=== PATIENT | female | born 1970 | race Caucasian/White ===

== ENCOUNTER 2022-09-07 09:24 | Inpatient (IN) | payer SELFPAY ==
--- NOTE | 2022-09-07 10:49 | RAD REPORT ---
EXAM DESCRIPTION: USExtremity Venous Uni Ltd09/07/2022 10:36 am CLINICAL HISTORY: left leg swelling COMPARISON: None FINDINGS: Left common femoral, superficial femoral, popliteal and posterior tibial veins are compre ssible and demonstrate augmentation. Doppler demonstrates good flow. Nonspecific 3 x 1 x 2 centimeter left inguinal lymph node Grayscale, color and spectral analysis performed on all vessels IMPRESSION: No evidence of deep venous thrombosis involving the left lower extremity.
--- NOTE | 2022-09-07 10:51 | RAD REPORT ---
EXAM DESCRIPTION: US - Lower Extremity Artery Uni Ltd - 09/07/2022 10:36 am CLINICAL HISTORY: Leg pain COMPARISON: None FINDINGS: The left common femoral, superficial femoral, popliteal and dorsalis pedis arterial waveform is bipha sic. Left posterior tibial arterial waveform monophasic Grayscale, color and spectral analysis performed on all vessels IMPRESSION: Mild upper and mid left lower extremity arterial disease [id number] distal left lower extremity arterial disease
--- NOTE | 2022-09-07 11:05 | RAD REPORT ---
EXAM DESCRIPTION: RAD - Foot Left 3 View - 09/07/2022 10:45 am CLINICAL HISTORY: Left Foot pain FINDINGS: Amputation first phalanx. Soft tissue ulceration medially. Cortical irregularity involves the first metatarsal head which may indicate osteomyelitis. No fracture or dislocation Appear to be postsurgical changes involving second phalanx
[2022-09-07 11:23] LABS: Absolute Lymphocytes (CBC) 2.8 K/uL (0.7-4.9); Hematocrit 37.8 % (36.0-45.0); MCV 80.7 fL (80-100); MPV 7.6 fL (7.6-11.3); RBC Red Blood Cell Count 4.68 M/uL (3.86-4.86)
[2022-09-07 11:29] LABS: Protime INR 1.35
[2022-09-07] MEDS ORDERED: NA CHLORIDE 0.9% 100 ML IV ONE (11:39)
[2022-09-07] MEDS ORDERED: VANCOMYCIN 1 GM/VIAL ONE (11:39)
[2022-09-07] MEDS ORDERED: FENTANYL CITR 100 MCG/2 ML ONE (11:39)
[2022-09-07] MEDS ORDERED: NA CHLORIDE 0.9% 250 ML ONE (11:39)
[2022-09-07] MEDS ORDERED: CEFAZOLIN SODIUM 1 GM/VIAL ONE ×2 (11:39→19:58)
[2022-09-07 11:40] LABS: Bilirubin Direct 0.1 mg/dL (0-0.2); Bilirubin Total 0.4 mg/dL (0.2-1.0); Potassium 3.4 mmol/L (3.5-5.1); Protein, Total 8.8 g/dL (6.4-8.2); Troponin High Sensitivity 3.5 pg/mL (<58.9)
[2022-09-07 11:41] LABS: SARS-CoV-2 Antigen Rapid Res Negative (Negative)
--- NOTE | 2022-09-07 11:58 | RAD REPORT ---
EXAM DESCRIPTION: Edward Single View09/07/2022 10:45 am CLINICAL HISTORY: Hypertension COMPARISON: none FINDINGS: The lungs appear clear of acute infiltrate. The heart is normal size IMPRESSION: No acute abnormalities displayed
--- NOTE | 2022-09-07 12:50 | ER ---
Nurse's Notes [facility] Name: Chitra Perry Age: 52 yrs Sex: Female : 1970 Arrival Date: 09/07/2022 Time: 09:27 Bed 6 Private MD: Diagnosis: Cellulitis of left lower limb;Diabetes mellitus due to underlying condition with hyperglycemia Presentation: 09/07 09:54 Chief complaint: Patient states: had her left great toe amputated years ago and it iw never healed, this past week it got read and swollen and oozing, and now my leg is hurting. Coronavirus screen: At this time, the client does not indicate any symptoms associated with coronavirus-19. Ebola Screen: Patient negative for fever greater than or equal to 101.5 degrees Fahrenheit, and additional compatible Ebola Virus Disease symptoms Patient denies exposure to infectious person. Patient denies travel to an Ebola-affected area in the 21 days before illness onset. No symptoms or risks identified at this time. Initial Sepsis Screen: Does the patient meet any 2 criteria? No. Patient's initial sepsis screen is negative. Does the patient have a suspected source of infection? No. Patient's initial sepsis screen is negative. Risk Assessment: Do you want to hurt yourself or someone else? Patient reports no desire to harm self or others. Onset of symptoms was August 31, 2022. 09:54 Method Of Arrival: Ambulatory iw 09:54 Acuity: SIGRID 3 iw Triage Assessment: 10:00 General: Appears distressed, uncomfortable, Behavior is cooperative, appropriate for bp age, anxious. Pain: Complains of pain in left leg. EENT: No deficits noted. Neuro: No deficits noted. Cardiovascular: No deficits noted. Respiratory: No deficits noted. GI: No signs and/or symptoms were reported involving the gastrointestinal system. : No signs and/or symptoms were reported regarding the genitourinary system. Derm: No deficits noted. Musculoskeletal: No deficits noted. Injury Description: LEFT GREAT TOE STUMP POST-SURGICAL WOUND. Historical: - Allergies: 09:56 PENICILLINS; iw 09:56 Codeine; iw - Home Meds: 09:57 None [Active]; iw - PMHx: 09:57 Diabetes mellitus; Hypertensive disorder; neuropathy; iw - PSHx: 09:57 section; iw - Immunization history:: Client reports having NOT received the Covid vaccine. - Social history:: Smoking status: . Screenin:00 Abuse screen: Denies threats or abuse. Denies injuries from another. Nutritional bp screening: No deficits noted. Tuberculosis screening: No symptoms or risk factors identified. Fall Risk None identified. Assessment: 10:00 General: SEE TRIAGE NOTE. bp 12:00 Reassessment: No changes from previously documented assessment. Patient and/or family bp updated on plan of care and expected duration. Pain level reassessed. 13:00 Reassessment: ADMIT INITIATED. bp 15:00 Reassessment: No changes from previously documented assessment. Patient and/or family bp updated on plan of care and expected duration. Pain level reassessed. ADMIT IN PROCESS. 17:00 Reassessment: No changes from previously documented assessment. Patient and/or family bp updated on plan of care and expected duration. Pain level reassessed. ADMIT IN PROCESS. 17:52 Reassessment: ADMIT COMPLETED. bp Vital Signs: 09:54 BP 160 / 74; Pulse 95; Resp 18; Temp 96.9; Pulse Ox 100% on R/A; Weight 83.91 kg; iw Height 5 ft. 7 in. (170.18 cm); Pain 8/10; 11:00 BP 125 / 65; Pulse 81; Resp 16; Pulse Ox 99% ; bp 12:00 BP 129 / 67; Pulse 85; Resp 15; Pulse Ox 96% ; bp 13:00 BP 129 / 65; Pulse 86; Resp 16; Pulse Ox 99% ; bp 14:00 BP 134 / 59; Pulse 84; Resp 16; Pulse Ox 99% ; bp 15:00 BP 129 / 65; Pulse 88; Resp 16; Pulse Ox 99% ; bp 16:00 BP 140 / 68; Pulse 90; Resp 16; Pulse Ox 98% ; bp 17:00 BP 127 / 67; Pulse 87; Resp 16; Pulse Ox 99% ; bp 09:54 Body Mass Index 28.97 (83.91 kg, 170.18 cm) iw ED Course: 09:27 Patient arrived in ED. as 09:30 Andrews Hernandez PA is PHCP. cp 09:30 Andrews Onofre MD is Attending Physician. cp 09:56 Triage completed. iw 09:57 Arm band placed on. iw 10:00 Patient has correct armband on for positive identification. Bed in low position. Call bp light in reach. Side rails up X2. 10:30 Andrea Doe, RN is Primary Nurse. bp 10:38 US Extremity Venous Unilateral Ltd In Process Unspecified. EDMS 10:38 US LE Artery Uni Ltd In Process Unspecified. EDMS 10:46 XRAY Foot LEFT 3 View In Process Unspecified. EDMS 10:46 XRAY Chest (1 view) In Process Unspecified. EDMS 11:05 Inserted saline lock: 20 gauge in right forearm, using aseptic technique. Blood bp collected. 12:49 Rob Tena MD is Hospitalizing Provider. cp 13:03 Rob Tena MD is Hospitalizing Provider. snw 13:03 Pipe Goodson is Hospitalizing Provider. snw 17:52 No provider procedures requiring assistance completed. Patient admitted, IV remains in bp place. Administered Medications: 11:30 Drug: fentaNYL (PF) 25 mcg Route: IVP; Site: right forearm; bp 13:27 Follow up: Response: Pain is decreased bp 11:30 Drug: ceFAZolin 1 grams Volume: 50 ml; Route: IVPB; Infused Over: 30 mins; Site: right bp forearm; 17:55 Follow up: IV Status: Completed infusion; IV Intake: 100ml bp 12:30 Drug: Potassium Effervescent Tablet 25 mEq Route: PO; bp 13:27 Follow up: Response: No adverse reaction bp 12:31 Drug: vancoMYCIN 1 grams Route: IVPB; Infused Over: 2 hrs; Site: right forearm; bp 17:55 Follow up: IV Status: Completed infusion; IV Intake: 250ml bp 13:00 Drug: morphine 4 mg Route: IVP; Infused Over: 4 mins; Site: right forearm; bp 13:27 Follow up: Response: Pain is decreased bp Intake: 17:55 IV: 250ml; Total: 250ml. bp 17:55 IV: 100ml; Total: 350ml. bp Outcome: 12:50 Decision to Hospitalize by Provider. cp 17:52 Admitted to Med/surg accompanied by tech, family with patient, via wheelchair, room bp 214, with chart, Report called to MARQUIS BRODERICK 17:52 Condition: stable 17:52 Instructed on the need for admit. 18:59 Patient left the ED. bp Signatures: Dispatcher [employer] Chanelle Crisostomo, MASON-C DESIGN SUPERVISOR-Csnw Keily Mendiola as Nirmala Wallace, DAVIE RN iw Andrews Hernandez PA PA cp Peltier, Brian, RN RN bp Corrections: (The following items were deleted from the chart) 09:57 09:54 BP 160 / 74; Pulse 103bpm; Resp 18bpm; Pulse Ox 100% RA; Temp 96.9F; 83.91 kg; iw Height 5 ft. 7 in.; BMI: 28.9; Pain 8/10; iw
--- NOTE | 2022-09-07 12:51 | EDPHYS ---
Physician Documentation [facility] Name: Chitra Perry Age: 52 yrs Sex: Female : 1970 Arrival Date: 09/07/2022 Time: 09:27 Bed 6 Private MD: Andrews Lee HPI: 09/07 10:30 This 52 yrs old Female presents to ER via Ambulatory with complaints of Wound Check, cp Leg Pain. 10:30 The patient presents with swelling, tenderness, erythema. cp 10:30 The complaints affect the right foot. Onset: The symptoms/episode began/occurred 1 cp week(s) ago. Associated signs and symptoms: Pertinent positives: calf tenderness, right lower leg pain. Historical: - Allergies: 09:56 PENICILLINS; iw 09:56 Codeine; iw - Home Meds: 09:57 None [Active]; iw - PMHx: 09:57 Diabetes mellitus; Hypertensive disorder; neuropathy; iw - PSHx: 09:57 section; iw - Immunization history:: Client reports having NOT received the Covid vaccine. - Social history:: Smoking status: . ROS: 10:35 Constitutional: Negative for body aches, chills, fever, poor PO intake. cp 10:35 Neck: Negative for pain with movement, pain at rest. cp 10:35 Respiratory: Negative for cough, shortness of breath, wheezing. 10:35 Abdomen/GI: Negative for vomiting, diarrhea, constipation. 10:35 MS/extremity: Positive for erythema, pain, swelling, tenderness, of the right foot. 10:35 Neuro: Negative for altered mental status, headache, weakness. 10:35 All other systems are negative. Exam: 10:40 Constitutional: The patient appears in no acute distress, alert, awake, non-toxic, well cp developed, well nourished, uncomfortable. 10:40 Head/Face: Normocephalic, atraumatic. cp 10:40 Eyes: Periorbital structures: appear normal, Conjunctiva: normal, no exudate, no injection, Sclera: no appreciated abnormality, Lids and lashes: appear normal, bilaterally. 10:40 ENT: External ear(s): are unremarkable, Nose: is normal, Mouth: Lips: moist, Oral mucosa: pink and intact, moist, Posterior pharynx: Airway: no evidence of obstruction, patent. 10:40 Chest/axilla: Inspection: normal. 10:40 Cardiovascular: Rate: normal, Rhythm: regular, Edema: is not appreciated, JVD: is not appreciated. 10:40 Respiratory: the patient does not display signs of respiratory distress, Respirations: normal, no use of accessory muscles, no retractions, labored breathing, is not present, Breath sounds: are clear throughout, no decreased breath sounds, no stridor, no wheezing. 10:40 Abdomen/GI: Exam negative for discomfort, distension, guarding, Inspection: abdomen appears normal. 10:40 Back: pain, is absent, ROM is normal. 10:40 Musculoskeletal/extremity: Extremities: noted in the right foot: amputation noted right great toe, marked erythema, swelling and mild drainage from amputation site, weak, palpable right dorsalis pedis pulse. Vital Signs: 09:54 BP 160 / 74; Pulse 95; Resp 18; Temp 96.9; Pulse Ox 100% on R/A; Weight 83.91 kg; iw Height 5 ft. 7 in. (170.18 cm); Pain 8/10; 11:00 BP 125 / 65; Pulse 81; Resp 16; Pulse Ox 99% ; bp 12:00 BP 129 / 67; Pulse 85; Resp 15; Pulse Ox 96% ; bp 13:00 BP 129 / 65; Pulse 86; Resp 16; Pulse Ox 99% ; bp 14:00 BP 134 / 59; Pulse 84; Resp 16; Pulse Ox 99% ; bp 15:00 BP 129 / 65; Pulse 88; Resp 16; Pulse Ox 99% ; bp 16:00 BP 140 / 68; Pulse 90; Resp 16; Pulse Ox 98% ; bp 17:00 BP 127 / 67; Pulse 87; Resp 16; Pulse Ox 99% ; bp 09:54 Body Mass Index 28.97 (83.91 kg, 170.18 cm) iw MDM: 10:03 Patient medically screened. [facility] 12:45 Data reviewed: vital signs, nurses notes, lab test result(s), radiologic studies. 12:45 Differential diagnosis: cellulitis, sepsis, osteomyelitis. Test interpretation: by ED cp physician or midlevel provider: plain radiologic studies. Counseling: I had a detailed discussion with the patient and/or guardian regarding: the historical points, exam findings, and any diagnostic results supporting the discharge/admit diagnosis, lab results, radiology results, the need for further work-up and treatment in the hospital. Response to treatment: the patient's symptoms have markedly improved after treatment. Physician consultation: Chanelle CANTU was contacted at 12:45, regarding admission, patient's condition. 09/07 10:10 Order name: Basic Metabolic Panel; Complete Time: 11:44 cp 09/07 11:44 Interpretation: Normal except: NA 132; K 3.4; CL 95; GLUC 344. cp 09/07 10:10 Order name: CBC with Diff; Complete Time: 11:44 cp 09/07 10:10 Order name: LFT's; Complete Time: 11:44 cp 09/07 11:45 Interpretation: Normal except: ALK 158; TP 8.8; ALB 3.0; GLOB 5.8; A/G 0.5. cp 09/07 10:10 Order name: NT PRO-BNP; Complete Time: 11:44 cp 09/07 10:10 Order name: PT-INR; Complete Time: 11:44 cp 09/07 10:10 Order name: Troponin HS; Complete Time: 11:44 cp 09/07 11:46 Interpretation: Troponin HS 3.5; Reviewed. cp 09/07 10:10 Order name: Lactate w/ 2H reflex if indic.; Complete Time: 12:15 cp 09/07 10:10 Order name: Procalcitonin; Complete Time: 12:15 cp 09/07 12:15 Interpretation: Reviewed. 09/07 10:10 Order name: Blood Culture Adult (2) cp 09/07 10:51 Order name: SARS RAPID; Complete Time: 11:44 cp 09/07 11:12 Order name: Wound Culture EDCT 09/07 11:51 Order name: LAB Add On cp 09/07 11:51 Order name: ESR; Complete Time: 12:15 cp 09/07 11:51 Order name: CRP; Complete Time: 12:36 cp 09/07 12:50 Order name: COVID-19/FLU A+B snw 09/07 13:25 Order name: Magnesium EDMS 09/07 13:25 Order name: Phosphorus EDMS 09/07 13:25 Order name: Urinalysis EDMS 09/07 13:25 Order name: Vancomycin Peak EDMS 09/07 13:25 Order name: Basic Metabolic Panel EDMS 09/07 13:25 Order name: Basic Metabolic Panel EDMS 09/07 13:25 Order name: CBC with Automated Diff EDMS 09/07 13:25 Order name: CBC with Automated Diff EDMS 09/07 13:25 Order name: Comprehensive Metabolic Panel EDMS 09/07 13:25 Order name: Comprehensive Metabolic Panel EDMS 09/07 13:25 Order name: Lipid Profile EDMS 09/07 13:25 Order name: Lipid Profile EDMS 09/07 13:25 Order name: Protime (+INR) EDMS 09/07 13:25 Order name: Protime (+INR) EDMS 09/07 10:10 Order name: XRAY Foot LEFT 3 View; Complete Time: 11:26 cp 09/07 10:10 Order name: XRAY Chest (1 view); Complete Time: 12:15 cp 09/07 10:10 Order name: EKG; Complete Time: 10:11 cp 09/07 10:10 Order name: Cardiac monitoring; Complete Time: 11:24 cp 09/07 10:10 Order name: EKG - Nurse/Tech; Complete Time: 11:24 cp 09/07 10:10 Order name: IV Saline Lock; Complete Time: 11:24 cp 09/07 10:10 Order name: Labs collected and sent; Complete Time: 11:24 cp 09/07 10:10 Order name: O2 Per Protocol; Complete Time: 11:24 cp 09/07 10:10 Order name: O2 Sat Monitoring; Complete Time: 11:24 cp 09/07 10:10 Order name: US Extremity Venous Unilateral Ltd; Complete Time: 10:50 cp 09/07 10:50 Interpretation: Report reviewed. cp 09/07 10:10 Order name: US LE Artery Uni Ltd; Complete Time: 11:26 cp 09/07 13:25 Order name: CONS Physician Consult EDCT 09/07 13:25 Order name: 60g Consistent Carbohydrate (ADA 1800/2000) EDCT 09/07 13:25 Order name: NPO EDCT 09/07 13:25 Order name: PTT, Activated Partial Thromb EDMS 09/07 13:25 Order name: PTT, Activated Partial Thromb EDMS 09/07 13:25 Order name: Foot Left Wo Cont EDMS 09/07 18:53 Order name: Glucose, Ancillary Testing EDMS Administered Medications: 11:30 Drug: fentaNYL (PF) 25 mcg Route: IVP; Site: right forearm; bp 13:27 Follow up: Response: Pain is decreased bp 11:30 Drug: ceFAZolin 1 grams Volume: 50 ml; Route: IVPB; Infused Over: 30 mins; Site: right bp forearm; 17:55 Follow up: IV Status: Completed infusion; IV Intake: 100ml bp 12:30 Drug: Potassium Effervescent Tablet 25 mEq Route: PO; bp 13:27 Follow up: Response: No adverse reaction bp 12:31 Drug: vancoMYCIN 1 grams Route: IVPB; Infused Over: 2 hrs; Site: right forearm; bp 17:55 Follow up: IV Status: Completed infusion; IV Intake: 250ml bp 13:00 Drug: morphine 4 mg Route: IVP; Infused Over: 4 mins; Site: right forearm; bp 13:27 Follow up: Response: Pain is decreased bp Disposition Summary: 09/07/22 12:50 Hospitalization Ordered Hospitalization Status: Inpatient Admission cp [facility] cp Condition: Fair cp Problem: new cp Symptoms: have improved cp Bed/Room Type: Standard cp Provider: Pipe Goodson(09/07/22 13:03) snw Room Assignment: 214(09/07/22 15:50) em1 Diagnosis - Cellulitis of left lower limb cp - Diabetes mellitus due to underlying condition with hyperglycemia cp Forms: - Medication Reconciliation Form cp - SBAR form cp Addendum: 09/10/2022 08:01 Co-signature as Attending Physician, Andrews Onofre MD I agree with the assessment and c stein plan of care. Signatures: Dispatcher [employer] Anrdews Arechiga MD MD cha Waters, Shelly, AIRCRAFT RIGGING AND CONTROLS MECHANIC-C AIRCRAFT RIGGING AND CONTROLS MECHANIC-Csnw Nirmala Wallace, Edgar Tan RN em1 Andrews Hernandez PA PA cp Andrea Doe RN RN bp Corrections: (The following items were deleted from the chart) 09/07 11:12 10:31 Wound Culture+BA.LAB.BRZ ordered. [facility] 13:03 12:50 Rob Tena cp snw 15:50 12:50 cp em1
[2022-09-07] MEDS ORDERED: MAGNESIUM HYDROXIDE 8% 30 ML PO PRN (13:08)
[2022-09-07] MEDS ORDERED: ACETAMINOPHEN 500 MG TAB PO PRN (13:08)
[2022-09-07] MEDS ORDERED: POTASSIUM 25 MEQ EFFERV TAB ONE (13:22)
[2022-09-07] MEDS ORDERED: MORPHINE 4 MG/ML SYR ONE (13:22)
[2022-09-07] MEDS ORDERED: PANTOPRAZOLE 40 MG INJ ONE (14:14)
[2022-09-07] MEDS ORDERED: VANCOMYCIN 500 MG in NA CHLORIDE 0.9% 100 ML IVPB ONE (15:00)
[2022-09-07] MEDS: INSULIN -REGULAR HUMAN 50 UNIT/0.5 ML ML SQ SCH ×2 (16:30→20:32)
[2022-09-07 17:41] LABS: Magnesium 1.7 mg/dL (1.8-2.4); Phosphorus 2.9 mg/dL (2.5-4.9)
[2022-09-07] MEDS: NA CHLORIDE 0.9% 1,000 ML IV SCH (18:26)
[2022-09-07 19:08] VITALS: BMI 29.0
[2022-09-07] MEDS: CEFAZOLIN 1 GM in NA CHLORIDE 0.9% 50 ML IVPB SCH (19:58)
[2022-09-07] MEDS: MORPHINE 4 MG/ML SYR IV PRN (19:59)
[2022-09-07] MEDS ORDERED: NA CHLORIDE 0.9% 50 ML ONE (19:59)
--- NOTE | 2022-09-07 20:43 | P.HP ---
Certification for Inpatient With expected LOS: >2 Midnights Patient will require the following post-hospital care: None Practitioner: I am a practitioner with admitting privileges, knowledge of patient current condition, hospital course, and medical plan of care. Services: Services provided to patient in accordance with Admission requirements found in Title 42 Section 412.3 of the Code of Federal Regulations Patient History Date of Service: 09/07/22 Primary Care Provider: none Reason for admission: Osteomyelitis, uncontrolled diabetes History of Present Illness: Ms. Perry is a 52 yo diabetic, hypertensive, hyperlipidemic female who has no PCP and has not been on any medications since 2019. A few weeks ago her left foot became sore, developed an ulcer and in the past three days had become erythematous, edematous, with a foul discharge. Pt has had great toe of this foot removed in [place] many years ago Allergies Penicillins Allergy (Intermediate, Verified 09/07/22 20:45) Hives codeine Allergy (Mild, Verified 09/07/22 20:45) nausea, itching Home medications list reviewed: Yes Home Medications: NK [No Home Meds] 09/07/22 - Past Medical/Surgical History Has patient received pneumonia vaccine in the past: No Diabetic: Yes -: DM -: HTN -: neuropathy -: c section -: toe amputation - Family History Family History: Reviewed- Non-Contributory - Social History Smoking Status: Former smoker Alcohol use: Yes CD- Drugs: No Caffeine use: Yes Place of Residence: Home (alone) Review of Systems General: Unremarkable Eyes: Unremarkable ENT: Unremarkable Respiratory: Unremarkable Cardiovascular: Unremarkable Gastrointestinal: Unremarkable Genitourinary: Unremarkable Musculoskeletal: Other (left foot pain/numbness) Integumentary: Other (diabetic wound) Neurological: Unremarkable Lymphatics: Unremarkable Physical Examination - Vital Signs Temperature: 97.9 F Blood Pressure: 172/71 Pulse: 87 Respirations: 18 Pulse Ox (%): 98 - Physical Exam General: Alert, Oriented x3 HEENT: Atraumatic, Normocephalic Neck: Supple Respiratory: Clear to auscultation bilaterally, Normal air movement Cardiovascular: No edema, Normal pulses Capillary refill: <2 Seconds Gastrointestinal: Normal bowel sounds Musculoskeletal: No clubbing, No swelling Integumentary: Skin breakdown, Tenderness/swelling, Erythema, Warmth, Diabetic ulcer Neurological: Other (distal foot with some decreased sensation) Urinary: Other External genitalia: Deferred Rectal: Deferred - Studies Laboratory Data (last 24 hrs) 09/07/22 11:05: PT 14.8 H, INR 1.35 09/07/22 11:05: WBC 9.90, Hgb 12.8, Hct 37.8, Plt Count 384 09/07/22 11:05: Sodium 132 L, Potassium 3.4 L, BUN 10, Creatinine 0.63, Glucose 344 H, Total Bilirubin 0.4, AST 15, ALT 25, Alkaline Phosphatase 158 H Assessment and Plan - Problems (Diagnosis) (1) Osteomyelitis due to secondary diabetes Current Visit: Yes Status: Acute Plan: IV abx (Cefazolin, Vanc), MRI left foot, wound care/surgical eval and tx per Dr. Mendiola (2) Diabetes Current Visit: Yes Status: Acute Plan: serial measurements, insulin re-initiation Qualifiers: Diabetes mellitus type: type 2 Diabetes mellitus complication status: with skin complications Diabetes mellitus complication detail: with foot ulcer (3) Hypertension Current Visit: Yes Status: Acute Plan: Serial measurements, Lisinopril 10mg po Qualifiers: Hypertension type: primary hypertension Qualified Code(s): I10 - Essential (primary) hypertension Discharge Plan: Home Plan to discharge in: Greater than 2 days - Advance Directives Does patient have a Living Will: No Does patient have a Durable POA for Healthcare: No - Code Status/Comfort Care Code Status Assessed: Yes Code Status: Full Code Critical Care: No Time Spent Managing Pts Care (In Minutes): 70
[2022-09-07] MEDS: lisinopriL 10 MG TAB PO SCH (22:07)
[2022-09-08] MEDS ORDERED: CEFAZOLIN SODIUM 1 GM/VIAL ONE ×4 (00:49→23:53)
[2022-09-08] MEDS: CEFAZOLIN 1 GM in NA CHLORIDE 0.9% 50 ML IVPB SCH ×3 (00:50→18:27)
[2022-09-08] MEDS ORDERED: NA CHLORIDE 0.9% 50 ML ONE ×4 (00:50→23:52)
[2022-09-08] MEDS: VANCOMYCIN 1.5 GM in NA CHLORIDE 0.9% 500 ML IVPB SCH ×2 (02:32→14:57)
[2022-09-08 03:54] LABS: Absolute Lymphocytes (CBC) 1.9 K/uL (0.7-4.9); Hematocrit 31.4 % (36.0-45.0); Lymphocytes % 27.3 % (15.3-44.8); MCV 81.4 fL (80-100); MPV 7.5 fL (7.6-11.3); RBC Red Blood Cell Count 3.86 M/uL (3.86-4.86)
[2022-09-08 04:01] LABS: Protime INR 1.27
[2022-09-08 04:11] LABS: Albumin 2.3 g/dL (3.4-5.0); Bilirubin Total 0.3 mg/dL (0.2-1.0); Potassium 3.7 mmol/L (3.5-5.1)
[2022-09-08] MEDS: MORPHINE 4 MG/ML SYR IV PRN ×3 (05:46→22:08)
--- NOTE | 2022-09-08 07:53 | EKG ---
Test Date: 2022-09-07 Test Time: 11:19:18 X Ray Inspector: BP MEASUREMENT RESULTS: Intervals: Rate: 84 AR: 146 QRSD: 80 QT: 372 QTc: 439 [place]: P: 58 AR: 146 QRS: 18 T: 64 INTERPRETIVE STATEMENTS: Normal sinus rhythm Possible Left atrial enlargement Possible Anterior infarct, age undetermined Abnormal ECG No previous ECG available for comparison Electronically Signed On 09-08-22 07:49:13 HOTEL DESK CLERK by Srinivas Jaimes
[2022-09-08] MEDS: INSULIN -REGULAR HUMAN 50 UNIT/0.5 ML ML SQ SCH ×4 (08:32→22:02)
[2022-09-08] MEDS: NA CHLORIDE 0.9% 1,000 ML IV SCH ×3 (08:35→22:03)
[2022-09-08] MEDS ORDERED: MIDAZOLAM HCL 2 MG/2 ML INJ ONE (12:51)
[2022-09-08] MEDS ORDERED: propofoL 200 MG/20 ML VIAL IV ONE ×2 (12:51→13:26)
[2022-09-08] MEDS ORDERED: FENTANYL CITR 100 MCG/2 ML ONE (12:51)
[2022-09-08] MEDS ORDERED: BUPIVACAINE 0.5% PF 10 ML VIAL ONE (12:52)
[2022-09-08] MEDS ORDERED: LIDOCAINE 1% MPF 5 ML VIAL ONE (12:52)
[2022-09-08] MEDS ORDERED: KETOROLAC 30 MG/ML INJ ONE (13:33)
--- NOTE | 2022-09-08 13:59 | P.BOP ---
Preoperative diagnosis: left foot necrotic diabetic wound with abscess Postoperative diagnosis: same Primary procedure: Excisional debridement L foot necrotic diabetic wound with abscess Secondary procedure: [id number] Estimated blood loss: <10cc Specimen: culture Findings: see dicta Anesthesia: General Transferred to: Recovery Room Condition: Good
[2022-09-08] MEDS ORDERED: INSULIN -REGULAR HUMAN 50 UNIT/0.5 ML ML ONE (14:24)
--- NOTE | 2022-09-08 15:44 | P.PN ---
Subjective Date of Service: 09/08/22 Primary Care Provider: none Chief Complaint: Osteomyelitis, uncontrolled diabetes Patient has no new complain. She is n.p.o. for possible surgery today. No recorded fever. Physical Examination - Vital Signs Temperature: 97.3 F Blood Pressure: 108/59 Pulse: 79 Respirations: 18 Pulse Ox (%): 98 - Studies Microbiology Data (last 24 hrs): 09/07/22 11:05 Wound - Left Foot Gram Stain - Final Assessment And Plan - Current Problems (Diagnosis) (1) Diabetic foot ulcer Current Visit: Yes Status: Acute (2) Type II diabetes mellitus Current Visit: Yes Status: Acute (3) Hypertension Current Visit: Yes Status: Acute Qualifiers: Hypertension type: primary hypertension Qualified Code(s): I10 - Essential (primary) hypertension - Plan Physical Exam General: Alert, Oriented x3 HEENT: Atraumatic, Normocephalic Neck: Supple Respiratory: Clear to auscultation bilaterally, Normal air movement Cardiovascular: No edema, Normal pulses Capillary refill: <2 Seconds Gastrointestinal: Normal bowel sounds Musculoskeletal: No clubbing, No swelling Integumentary: Diabetic foot ulcer left first interdigital space, status post right big toe amputation. Ulcer has malodorous odor. Erythema-dorsum of left foot Neurological: No focal motor deficit Plan: Dr. Mendiola input very much appreciated. Status post wound debridement. X-ray of the left foot suggest cortical irregularity involves the first metatarsal head which may indicate osteomyelitis. Continue aggressive antibiotic therapy. Pain management as needed Follow wound culture. Patient confirms doing an MRI of the foot. Results is pending. May need PICC line for prolonged outpatient IV antibiotics for possible osteomyelitis. Insulin sliding scale for glucose management. Check hemoglobin A1c. Continue home antihypertensives.
--- NOTE | 2022-09-08 16:34 | RAD REPORT ---
EXAM DESCRIPTION: MRI - Foot Left Wo Cont - 09/08/2022 3:51 pm CLINICAL HISTORY: osteo Pain and swelling, possible osteomyelitis COMPARISON: Foot Left 3 View dated 09/07/2022 FINDINGS: There is significant abnormal diminished T1 signal and elevated T2/IR signal involving the distal shaft and head of the first metatarsal. The surrounding tissues are significantly thickened w ith probable small fluid collections noted medially and anteriorly. Previous great toe amputation is present. There is a large irregular ulceration along the plantar asp ect of this region. No additional areas of osteomyelitis are identified. IMPRESSION: Advanced osteomyelitis involving the distal shaft and head of the first metatarsal.
--- NOTE | 2022-09-08 19:27 | CON ---
Date of Consultation: 09/08/2022 Reason For Service: They just consulted me at this moment for a necrotic, diabetic foot ulcer. This is the case of a 52-year-old patient admitted apparently overnight with cellulitis of the left f oot. The patient apparently had previous amputation of that area and shows necrotic with gangrenous changes skin over the dorsal foot region. She noticed this from before. She has been walking like t hat. She has been previously seen at [facility] system. This is the first time admitted her over here. I mmediately asked about the followup. She does not have any primary doctor, which is since February since the patient has history of hypertension, diabetes. Once we ask her about if she takes any insulin or any diabetes control, she states she does not have the money for that. She understands the risks of disease and the chance of losing her foot. Allergies: PENICILLIN AND CODEINE. Past Medical Problems: Diabetes, hypertension, peripheral neuropathy. Past Surgical History: Include amputation of the first toe. Social History: Patient smokes, drinks alcohol occasionally. Review of Systems: Foul smelling left foot. Physical Examination: GENERAL: The patient is awake, alert. HEENT: Pupils are equal and reactive. Anicteric. Neck: Supple. Chest: Clear. Heart: S1 and S2. ABDOMEN: Soft and depressible. Extremities: Patient has a necrotic diabetic ulcer with cellulitis and abscess on the left foot. Th e patient apparently has a previous amputation of the first toe in that region . There is foul smell coming from that area. Dorsalis pedis pulses bilaterally are diminished. Neurologic: Patient has peripheral neuropathy. Laboratory Data: Blood work shows WBC count of 7 with hemoglobin of 10. INR is 1.27, creatinine is 0.45. Venous Doppler shows no evidence of DVT. Arterial Doppler shows mid upper and mid left lower extremity arterial disease. Assessment: This is a case of a 52-year-old patient who has not taking her insulin because she stat es she cannot afford, with a foul-smelling necrotic foot on the left side. She does not want amputat ion at this moment, so the primary doctor asked me to at least do the debridement of the necrotic tis tonio. They are going to give some antibiotics. They are going to see how the wound develops, see if they can control her diabetes and also make her understand the importance of control at home. If basil t does not work, then unfortunately she may have to go for left below-knee amputation. I explained t o her that even that option, if she does not control her diabetes, will not help her condition and juan rosa understands diabetes not only damage the foot, but also damage systemically the rest of the body. She understands that. The patient was emergently booked in OR. СВЕТЛАНА/MODL Voice ID: [id number] Report ID: [id number]
[2022-09-08] MEDS: lisinopriL 10 MG TAB PO SCH (20:38)
--- NOTE | 2022-09-08 23:04 | OP ---
Date of Procedure: 09/08/2022 Surgeon: Nader Mendiola MD Preoperative Diagnosis: Left foot necrotic diabetic wound with abscess. Postoperative Diagnosis: Left foot necrotic diabetic wound with abscess. Procedure: Excisional debridement of left foot necrotic diabetic wound with abscess drainage. The a shruthi is about 5 x 5 x 3 cm. Estimated Blood Loss: Less than 10 mL. Specimen: Culture. Findings: Patient has a dorsal and plantar ulcer through and through connection with a large amount of purulent discharge in the ulcer part of it. We had to remove the necrotic tissue present in both areas, irrigated the area, and obtained cultures. Indications: This is the case of a 52-year-old patient who unfortunately not taking care of her diab etes and developed a necrotic infected ulcer on the left foot. Apparently, she had an amputation not too long ago at [place]. She has been walking on the wound, developed fluctuance and redness all over the foot and she was admitted to the hospital with necrotic foot ulcer foul smelling and they ca lled me for a debridement. The patient understands debridement is only a limited option. She has to control her sugar. She still may need a below-knee amputation and she is not ready for that at this moment. The benefits, alternatives, and risks of debridement were fully explained, which include, b ut are not limited to infection, bleeding, damage to adjacent structures, anesthesia complication, re currence, OR, and even . She also understands this may not relieve any symptoms. She might nee d more than one surgical intervention. She understood and signed a consent. The patient understands the importance of following up with her vascular surgeon to see if there is any possibility to impro ve her peripheral vascular disease, but if she does not control her sugar, I do not think it is going to be successful with any treatment we do. She understood. Procedure In Detail: The patient's area was marked by me and the patient in the holding room. Ervin aguayo was brought to the operating room and placed in supine position. Anesthesia was given without com plication and after that time-out was called. Left foot was prepped and draped in a sterile fashion. Local anesthesia was applied, followed by debridement of the necrotic tissue. We unroofed differen t abscess cavities that we went through the loculations and removed the pus. This wound comes from t he dorsum to the plantar surface that was through and through between the metatarsal bones. The area was irrigated, hemostasis was obtained and then the area was packed with wet-to-dry dressing. Ervin aguayo tolerated the procedure well and patient was sent to recovery in stable condition. СВЕТЛАНА/LUZ Voice ID: [id number] Report ID: [id number]
[2022-09-09] MEDS: CEFAZOLIN 1 GM in NA CHLORIDE 0.9% 50 ML IVPB SCH ×2 (00:34→10:07)
[2022-09-09 03:18] LABS: Hematocrit 29.7 % (36.0-45.0); Lymphocytes % 36.7 % (15.3-44.8); MPV 7.5 fL (7.6-11.3); RBC Red Blood Cell Count 3.67 M/uL (3.86-4.86)
[2022-09-09 03:19] LABS: Absolute Lymphocytes (CBC) 2.4 K/uL (0.7-4.9)
[2022-09-09 03:37] LABS: Potassium 3.9 mmol/L (3.5-5.1)
[2022-09-09] MEDS: VANCOMYCIN 1.5 GM in NA CHLORIDE 0.9% 500 ML IVPB SCH (03:48)
[2022-09-09] MEDS: MORPHINE 4 MG/ML SYR IV PRN ×4 (04:12→23:49)
[2022-09-09] MEDS ORDERED: CEFAZOLIN SODIUM 1 GM/VIAL ONE (08:44)
[2022-09-09] MEDS ORDERED: NA CHLORIDE 0.9% 50 ML ONE (08:45)
[2022-09-09] MEDS ORDERED: POTASSIUM CL SA 10 MEQ TAB PO ONE (09:00)
[2022-09-09] MEDS: INSULIN -REGULAR HUMAN 50 UNIT/0.5 ML ML SQ SCH ×4 (10:08→21:01)
[2022-09-09] MEDS: NA CHLORIDE 0.9% 1,000 ML IV SCH (11:34)
--- NOTE | 2022-09-09 13:11 | P.PN ---
Subjective Date of Service: 09/09/22 Primary Care Provider: none Chief Complaint: Osteomyelitis, uncontrolled diabetes Patient has no new complain. She is tolerating diet. Blood sugar readings elevated. No recorded fever. Physical Examination - Vital Signs Temperature: 97.4 F Blood Pressure: 127/57 Pulse: 75 Respirations: 16 Pulse Ox (%): 99 - Studies Microbiology Data (last 24 hrs): 09/07/22 11:05 Wound - Left Foot Gram Stain - Final Assessment And Plan - Current Problems (Diagnosis) (1) Diabetic foot ulcer Current Visit: Yes Status: Acute (2) Type II diabetes mellitus Current Visit: Yes Status: Acute (3) Hypertension Current Visit: Yes Status: Acute Qualifiers: Hypertension type: primary hypertension Qualified Code(s): I10 - Essential (primary) hypertension - Plan Physical Exam General: Alert, Oriented x3 HEENT: Atraumatic, Normocephalic Neck: Supple Respiratory: Clear to auscultation bilaterally, Normal air movement Cardiovascular: No edema, Normal pulses Capillary refill: <2 Seconds Gastrointestinal: Normal bowel sounds Musculoskeletal: No clubbing, No swelling Integumentary: Diabetic foot ulcer left first interdigital space, status post right big toe amputation. Ulcer has malodorous odor. Erythema-dorsum of left foot Neurological: No focal motor deficit Plan: Seen by Dr. Mendiola and sStatus post wound debridement. X-ray of the left foot suggest cortical irregularity involves the first metatarsal head which may indicate osteomyelitis. MRI of the foot confirms osteomyelitis. Deep tissue wound culture is pending Continue aggressive antibiotic therapy. Pain management as needed Follow wound culture. Place PICC line for prolonged outpatient IV antibiotics for possible osteomyelitis. Insulin sliding scale for glucose management. Add NPH 70/30. Hemoglobin A1c is 11.9 Patient is unfunded She will discharge with NPH 70/30 and metformin for affordability Continue home antihypertensives.
[2022-09-09] MEDS ORDERED: D50W 25 GM/50 ML SYRINGE IV PRN (13:15)
[2022-09-09] MEDS ORDERED: GLUCAGON 1 MG/VIAL IM PRN (13:15)
[2022-09-09] MEDS: VANCOMYCIN 1.75 GM in NA CHLORIDE 0.9% 500 ML IVPB SCH (16:48)
[2022-09-09] MEDS: CEFEPIME 1 GM in NA CHLORIDE 0.9% 50 ML IV SCH (16:48)
[2022-09-09] MEDS: lisinopriL 10 MG TAB PO SCH (20:59)
[2022-09-09] MEDS: INSULIN 70/30 100 UNITS/ML SQ SCH (21:00)
[2022-09-10] MEDS: CEFEPIME 1 GM in NA CHLORIDE 0.9% 50 ML IV SCH ×3 (01:00→17:56)
[2022-09-10] MEDS: NA CHLORIDE 0.9% 1,000 ML IV SCH ×3 (02:35→16:49)
[2022-09-10] MEDS: VANCOMYCIN 1.75 GM in NA CHLORIDE 0.9% 500 ML IVPB SCH ×2 (03:08→16:50)
[2022-09-10 04:42] LABS: Magnesium 1.6 mg/dL (1.8-2.4); Potassium 3.8 mmol/L (3.5-5.1)
[2022-09-10 06:46] LABS: Specific Gravity 1.014 (1.005-1.030); Urine Bilirubin NEGATIVE (Negative); Urine Blood Negative (Negative); Urine Clarity Clear (Clear); Urine Color Light-Yellow (Yellow); Urine Glucose NEGATIVE (Negative); Urine Mucus Slight /HPF (None Seen); Urine Protein NEGATIVE (Negative); Urine RBC <5 /HPF (None Seen); Urine Urobilinogen Normal (Normal)
[2022-09-10] MEDS ORDERED: MAGNESIUM SULFATE 1 gm IVPB 1 GM/100 ML BAG IV ONE (07:00)
[2022-09-10] MEDS: INSULIN -REGULAR HUMAN 50 UNIT/0.5 ML ML SQ SCH ×4 (07:30→21:00)
[2022-09-10] MEDS ORDERED: CEFEPIME 1 GM/VIAL ONE (08:33)
[2022-09-10] MEDS: INSULIN 70/30 100 UNITS/ML SQ SCH ×2 (08:44→21:36)
[2022-09-10] MEDS ORDERED: POTASSIUM CL SA 10 MEQ TAB PO ONE (09:00)
[2022-09-10] MEDS ORDERED: NA CHLORIDE 0.9% 50 ML IV ONE (09:32)
--- NOTE | 2022-09-10 13:31 | P.PN ---
Subjective Date of Service: 09/10/22 Primary Care Provider: none Chief Complaint: Osteomyelitis, uncontrolled diabetes Patient has no new She is tolerating diet. Blood sugar readings improved. No recorded fever. Physical Examination - Vital Signs Temperature: 97.5 F Blood Pressure: 152/68 Pulse: 70 Respirations: 14 Pulse Ox (%): 96 - Studies Microbiology Data (last 24 hrs): 09/07/22 11:05 Wound - Left Foot Gram Stain - Final Assessment And Plan - Current Problems (Diagnosis) (1) Diabetic foot ulcer Current Visit: Yes Status: Acute (2) Type II diabetes mellitus Current Visit: Yes Status: Acute (3) Hypertension Current Visit: Yes Status: Acute Qualifiers: Hypertension type: primary hypertension Qualified Code(s): I10 - Essential (primary) hypertension (4) Osteomyelitis of left foot Current Visit: Yes Status: Acute - Plan Physical Exam General: Alert, Oriented x3 HEENT: Atraumatic, Normocephalic Neck: Supple Respiratory: Clear to auscultation bilaterally, Normal air movement Cardiovascular: No edema, Normal pulses Gastrointestinal: Normal bowel sounds Musculoskeletal: No clubbing, No swelling Integumentary: Diabetic foot ulcer left first interdigital space, status post right big toe amputation. Status postdebridement and foot dressed in kerlix/Maykel wrap. Neurological: No focal motor deficit Plan: Seen by Dr. Mendiola and Status post wound debridement. X-ray of the left foot suggest cortical irregularity involving the first metatarsal head which may indicate osteomyelitis. MRI of the foot confirms osteomyelitis. Wound culture: Strep agalactiae and Proteus. Continue current antibiotics. Pain management as needed Place PICC line for prolonged outpatient IV antibiotics for possible osteomyelitis. Infectious disease consulted for antibiotic choice. Insulin sliding scale for glucose management. Continue NPH 70/30. Hemoglobin A1c is 11.9 Patient is unfunded She will discharge with NPH 70/30 and metformin. Continue home antihypertensives.
--- NOTE | 2022-09-10 16:26 | RAD REPORT ---
EXAM DESCRIPTION: RAD - Chest Single View - 09/10/2022 4:20 pm CLINICAL HISTORY: PICC line placement COMPARISON: Portable 09/07/2022 FINDINGS: Portable chest was obtained following placement of a right upper extremity PICC line. The catheter tip is in the distal SVC.
[2022-09-10] MEDS: MORPHINE 4 MG/ML SYR IV PRN ×2 (16:57→23:59)
[2022-09-10] MEDS: lisinopriL 10 MG TAB PO SCH (21:35)
[2022-09-11] MEDS: CEFEPIME 1 GM in NA CHLORIDE 0.9% 50 ML IV SCH ×2 (00:02→08:40)
[2022-09-11 02:46] LABS: Magnesium 1.9 mg/dL (1.8-2.4); Potassium 4.1 mmol/L (3.5-5.1)
[2022-09-11] MEDS: VANCOMYCIN 1.75 GM in NA CHLORIDE 0.9% 500 ML IVPB SCH (02:59)
[2022-09-11] MEDS: NA CHLORIDE 0.9% 1,000 ML IV SCH ×2 (05:23→18:42)
[2022-09-11] MEDS: MORPHINE 4 MG/ML SYR IV PRN ×3 (05:28→18:38)
[2022-09-11] MEDS: INSULIN -REGULAR HUMAN 50 UNIT/0.5 ML ML SQ SCH ×4 (07:30→21:56)
[2022-09-11] MEDS ORDERED: DEXTROSE 10%-WATER 125 ML IV PRN (07:51)
[2022-09-11] MEDS: INSULIN 70/30 100 UNITS/ML SQ SCH ×2 (08:45→21:57)
[2022-09-11] MEDS: Levofloxacin 750mg IV 750 MG/150 ML BAG IV SCH (13:22)
--- NOTE | 2022-09-11 14:34 | P.PN ---
Subjective Date of Service: 09/11/22 Primary Care Provider: none Chief Complaint: Osteomyelitis, uncontrolled diabetes Patient complaining of constipation. She is tolerating diet. Blood sugar readings within good range. Physical Examination - Vital Signs Temperature: 96.9 F Blood Pressure: 166/77 Pulse: 74 Respirations: 17 Pulse Ox (%): 97 - Studies Microbiology Data (last 24 hrs): 09/07/22 11:05 Wound - Left Foot Gram Stain - Final 09/07/22 11:05 Wound - Left Foot Culture & Sensitivity - Final Proteus Penneri Staph Aureus Streptococcus Agalactiae Grp B Assessment And Plan - Current Problems (Diagnosis) (1) Diabetic foot ulcer Current Visit: Yes Status: Acute (2) Type II diabetes mellitus Current Visit: Yes Status: Acute (3) Hypertension Current Visit: Yes Status: Acute Qualifiers: Hypertension type: primary hypertension Qualified Code(s): I10 - Essential (primary) hypertension (4) Osteomyelitis of left foot Current Visit: Yes Status: Acute - Plan Physical Exam General: Alert, Oriented x3 HEENT: Atraumatic, Normocephalic Neck: Supple Respiratory: Clear to auscultation bilaterally, Normal air movement Cardiovascular: No edema, Normal pulses Gastrointestinal: Normal bowel sounds Musculoskeletal: No clubbing, No swelling Integumentary: Diabetic foot ulcer left first interdigital space, status post right big toe amputation. Status postdebridement and foot dressed in kerlix/Maykel wrap. Neurological: No focal motor deficit Plan: Seen by Dr. Mendiola and Status post wound debridement. X-ray of the left foot suggest cortical irregularity involving the first metatarsal head which may indicate osteomyelitis. MRI of the foot confirms osteomyelitis. Wound culture: Strep agalactiae, Proteus and staph aureus. All organisms sensitive to Levaquin. Patient seen by infectious disease-Dr. Lamar and 6 weeks of IV Levaquin recommended. PICC line placed. Pain management as needed Wound care consulted. Insulin sliding scale for glucose management. Continue NPH 70/30. Hemoglobin A1c is 11.9. Blood sugar readings within good range with the current NPH 70/30 dose Patient is unfunded She will discharge with NPH 70/30 and metformin. CoLantinue home antihypertensives. Social service assisting with outpatient IV antibiotics arrangement. ctulose for constipation. Colace for constipation prophylaxis.
[2022-09-11] MEDS: LACTULOSE 20 GM/30 ML UCUP PO SCH ×2 (14:56→21:00)
--- NOTE | 2022-09-11 18:00 | CON ---
History Of Present Illness: This is a 52-year-old female. I was consulted for time duration of anti biotic on diabetic foot ulcer and abscess with osteomyelitis. The patient has been through a surgica l debridement of the wound site. Significant past medical history of noncompliance to treatment of h er blood pressure and diabetes mellitus with hemoglobin A1c of 11.6, currently getting insulin. The patient also has significant past medical history of allergies to penicillin causing rash and then hi ves. Past Medical History: As per HPI. Social History: Tobacco positive. Alcohol positive. Family History: Noncontributory. Medications: Vancomycin 1 cefepime. See MAR for other medications. Allergies: PENICILLIN AND CODEINE. Review of Systems: A 10-point review was performed. Physical Examination: General: A 52-year-old female, lying in bed, not in any acute cardiopulmonary distress. Vital Signs: Reviewed. HEENT: Unremarkable. Neck: Supple. Lungs: Basal crackles. Heart: S1, S2. Regular. Abdomen: Soft, nontender. Bowel sounds present. Extremities: Surgical dressing. Laboratory Data: Shows WBC 6.4, hemoglobin 10, platelets are 322. BUN 8, creatinine 0.4, albumin le aquilino of 4.3. Micro data shows Strep agalactiae group B, sensitive to Levaquin, Vanco and penicillin. Assessment And Plan: Osteomyelitis of left foot in a diabetic, noncompliant patient for her treatmen t with hemoglobin A1c of 11.9. We will recommend to continue monitoring blood sugars and strict suga r control for healing of her wound and infection. Continue Levaquin for total 6 weeks IV. Consider probiotics. Discontinue cefepime and vancomycin. We will follow the patient closely. Thank you, Dr. Goodson for consult. NF/IRISL Voice ID: [id number] Report ID: [id number]
--- NOTE | 2022-09-11 19:00 | PN ---
Date of Progress Note: 09/11/2022 Reason For Service: Foot cellulitis and abscess. Subjective: The patient is improving, feels better. Had a PICC line. She has been managed by the I nfectious Disease and primary doctor for antibiotic treatment. Plan: From the surgical standpoint, continue dressing changes. When she gets discharged, we will tu reynaga to [facility]. Medications and antibiotics per medical team. СВЕТЛАНА/LUZ Voice ID: [id number] Report ID: [id number]
[2022-09-11] MEDS ORDERED: lisinopriL 10 MG TAB PO SCH (21:00)
--- NOTE | 2022-09-11 21:48 | P.PN ---
Date of Service: 09/12/22 Subjective: ROS: A complete review of systems was performed and is negative except as mentioned above Physical Exam: Gen: NAD, AOx3 HEENT: normal conjunctiva, sclera anicteric CV: regular rate & rhythm, no edema Pulm: non-labored respirations, clear bilaterally Abd: soft, non-tender, non-distended Skin: L foot- dressing in place Neuro: normal speech, normal affect, moves all extremities vitals reviewed Problem List Left foot nonhealing diabetic ulcer with abscess and osteomyelitis IDDM2 HTN Osteomyelitis - distal shaft and head of first metatarsal MRI confirmed Dr. Mendiola performed wound debridement continue local wound dressings f/u in wound care clinic ID consulted, multiple bacteria growing in wound cultures all sensitive to levaquin recommended IV levaquin for 6 weeks s/p PICC line placement concern patient won't be able to afford medications social media content manager consulted DM2 continue 70/30 sliding scale monitor closely continue home antihypertensives, adjust as needed cover for constipation Code: full Dispo: home, with 6 weeks total IV antibiotics Time Spent Managing Pts Care (In Minutes): 35
[2022-09-12] MEDS: MORPHINE 4 MG/ML SYR IV PRN ×3 (02:13→15:31)
[2022-09-12] MEDS: INSULIN -REGULAR HUMAN 50 UNIT/0.5 ML ML SQ SCH ×3 (07:30→16:17)
[2022-09-12] MEDS: INSULIN 70/30 100 UNITS/ML SQ SCH (08:40)
[2022-09-12] MEDS: Levofloxacin 750mg IV 750 MG/150 ML BAG IV SCH (12:57)
[2022-09-12 14:20] VITALS: O2SAT 98
[2022-09-12 16:35] VITALS: BP 136/74; TEMP 97.9
--- NOTE | 2022-09-12 16:55 | P.DS ---
Admission Date: 09/07/22 Discharge Date: 09/12/22 Primary Care Provider: none Disposition: ROUTINE DISCHARGE Discharge Condition: GOOD Reason for Admission: Osteomyelitis, uncontrolled diabetes Consultations: General Surgery - Dr. Mendiola ID - Dr. Lamar Brief History of Present Illness: 52 yo F, PMH: DM2, HTN, HLD, who has not been on any medications since 2019. Presents to ED due to left foot ulcer with redness, swelling, and foul discharge. Exam and findings concerning for abscess and osteomyelitis. Hospital Course: Patient presented with left foot diabetic ulcer/abscess. She was treated empirically with IV antibiotics. Dr. Mendiola was consulted and performed debridement. MRI consistent with osteomyelitis of the distal shaft and head of the first metatarsal. Infectious disease was consulted, recommended IV Levaquin for 6 weeks. After discussions with case management and the patient's, patient reported inability to afford IV antibiotics. Discussed with infectious disease, only option would be to try oral antibiotics. Should have close to similar bioavailability as IV, assuming she is observing the oral medication well. Patient discharged with 40 more days of oral Levaquin, to complete 6 days of antibiotics. Follow-up PCP -within 1 week -routine blood work [facility] with Dr. Mendiola, next week on Sunday Continue local wound care daily. Patient was noted to have significant hyperglycemia. She was started on insulin 70/30 at 20 units twice daily which she tolerated well. She is to continue this at home. Counseled on glucometer use and follow-up with PCP for further adjustments. She was also noted to be hypertensive and started on lisinopril. Vital Signs/Physical Exam: Temp Pulse Resp BP Pulse Ox 97.9 F 73 18 136/74 97 09/12/22 16:00 09/12/22 16:00 09/12/22 16:01 09/12/22 16:00 09/12/22 16:01 General: Alert, In no apparent distress, Oriented x3 HEENT: EOMI, Sclerae nonicteric Neck: Supple, No LAD Respiratory: Clear to auscultation bilaterally, Normal air movement Cardiovascular: No edema, Regular rate/rhythm Gastrointestinal: Soft and benign, Non-distended, No tenderness Integumentary: Other (L foot s/p debridement, dressing clean/dry/intact) Neurological: Normal speech, Normal strength at 5/5 x4 extr, Normal affect Laboratory Data at Discharge: WBC 6.40 K/uL (4.3-10.9) 09/09/22 01:55 Hgb 10.0 g/dL (12.0-15.0) L 09/09/22 01:55 Hct 29.7 % (36.0-45.0) L 09/09/22 01:55 Plt Count 322 K/uL (152-406) 09/09/22 01:55 PT 14.0 SECONDS (9.5-12.5) H 09/08/22 03:25 INR 1.27 09/08/22 03:25 APTT 25.0 SECONDS (24.3-36.9) 09/08/22 03:25 Sodium 136 mmol/L (136-145) 09/11/22 02:14 Potassium 4.1 mmol/L (3.5-5.1) 09/11/22 02:14 BUN 8 mg/dL (7-18) 09/11/22 02:14 Creatinine 0.40 mg/dL (0.55-1.3) L 09/11/22 02:14 Glucose 172 mg/dL (74-106) H 09/11/22 02:14 Phosphorus 2.9 mg/dL (2.5-4.9) 09/07/22 16:49 Magnesium 1.9 mg/dL (1.8-2.4) 09/11/22 02:14 Total Bilirubin 0.3 mg/dL (0.2-1.0) 09/08/22 03:25 AST 34 U/L (15-37) 09/08/22 03:25 ALT 45 U/L (12-78) 09/08/22 03:25 Alkaline Phosphatase 252 U/L (45-117) H D 09/08/22 03:25 Triglycerides 173 mg/dL (<150) H 09/08/22 03:25 Cholesterol 129 mg/dL (<200) 09/08/22 03:25 HDL Cholesterol 40 mg/dL (40-60) 09/08/22 03:25 Cholesterol/HDL Ratio 3.23 09/08/22 03:25 Home Medications: Insulin 70/30 NPH/Reg Human [Novolin 70/30*] 20 unit SQ BID 30 Days #12 ml 09/12/22 Tramadol HCl [Ultram] 50 mg PO Q8H PRN #10 tab 09/12/22 levoFLOXacin [Levaquin] 750 mg PO DAILY 40 Days #40 tab 09/12/22 lisinopriL [Prinivil*] 10 mg PO BEDTIME 30 Days #30 tab 09/12/22 New Medications: levoFLOXacin [Levaquin] 750 mg PO DAILY 40 Days #40 tab Insulin 70/30 NPH/Reg Human [Novolin 70/30*] 20 unit SQ BID 30 Days #12 ml lisinopriL [Prinivil*] 10 mg PO BEDTIME 30 Days #30 tab Tramadol HCl [Ultram] 50 mg PO Q8H PRN #10 tab PRN Reason: Pain Scale 5-7 (Moderate) Physician Discharge Instructions: Patient presented with left foot diabetic ulcer/abscess. She was treated empirically with IV antibiotics. Dr. Mendiola was consulted and performed debridement. MRI consistent with osteomyelitis of the distal shaft and head of the first metatarsal. Infectious disease was consulted, recommended IV Levaquin for 6 weeks. After discussions with case management and the patient's, patient reported inability to afford IV antibiotics. Discussed with infectious disease, only option would be to try oral antibiotics. Should have close to similar bioavailability as IV, assuming she is observing the oral medication well. Patient discharged with 40 more days of oral Levaquin, to complete 6 days of antibiotics. Follow-up PCP -within 1 week -routine blood work [facility] healing center with Dr. Mendiola, next week on Sunday Continue local wound care daily. Patient was noted to have significant hyperglycemia. She was started on insulin 70/30 at 20 units twice daily which she tolerated well. She is to continue this at home. Counseled on glucometer use and follow-up with PCP for further adjustments. She was also noted to be hypertensive and started on lisinopril. Followup: NONE,NONE [Primary Care Provider] - Time spent managing pt's care (in minutes): 45
--- NOTE | 2022-09-12 18:58 | PN ---
Subjective: Patient lying in bed. Denies any problems with antibiotic, chest pain, abdominal pain, constipation, or diarrhea. Unable to take care of medication as she has many challenges. Objective: Vital Signs: Temperature 97, pulse 75, respirations 18, blood pressure 145/57. Lungs: Clear to auscultation. Heart: S1, S2. Regular. Abdomen: Soft, nontender. Bowel sounds present. Extremities: No edema. No other signs of active new infections. Laboratory Data: Reviewed. Medications: The patient currently on Levaquin. Assessment And Plan: Osteomyelitis of left foot and diabetic foot ulcer, noncompliant secondary to f inancial challenges according to patient. We will recommend to continue antibiotic for total of 6 we eks. Can be switched to oral if needed, has good viability. Also concern regarding diabetes control as patient's hemoglobin A1c was 11.9 at the time of admission. We will recommend to have better con trol of diabetes for better wound healing. NF/MODL Voice ID: [id number] Report ID: [id number]
== END 2022-09-12 17:15 | disposition home or self-care (01) | DRG 264 ==
LOC: ER 09:24 → ERHOLD 13:23 → 2ND 15:57
PROVIDERS: ADMIT Internal Medicine; ATTEND Hospitalist
PROC: 0JBQ0ZZ Excision of Right Foot Subcutaneous Tissue and Fascia, Open Approach (ICD-10-PCS; principal; 2022-09-08 12:15)
PROC: 02HV33Z Insertion of Infusion Device into Superior Vena Cava, Percutaneous Approach (ICD-10-PCS; 2022-09-10)
DX: E11.52 Type 2 diabetes mellitus with diabetic peripheral angiopathy with gangrene (principal); L03.116 Cellulitis of left lower limb; M86.172 Other acute osteomyelitis, left ankle and foot; L02.612 Cutaneous abscess of left foot; E11.69 Type 2 diabetes mellitus with other specified complication; E11.65 Type 2 diabetes mellitus with hyperglycemia; E11.40 Type 2 diabetes mellitus with diabetic neuropathy, unspecified; E11.621 Type 2 diabetes mellitus with foot ulcer; L97.529 Non-pressure chronic ulcer of other part of left foot with unspecified severity; I10 Essential (primary) hypertension; K59.00 Constipation, unspecified; E78.5 Hyperlipidemia, unspecified; Z60.2 Problems related to living alone; Z88.0 Allergy status to penicillin; Z79.4 Long term (current) use of insulin; Z88.5 Allergy status to narcotic agent; Z28.310 Unvaccinated for COVID-19; Z89.411 Acquired absence of right great toe; Z87.891 Personal history of nicotine dependence; Z91.199 Patient's noncompliance with other medical treatment and regimen due to unspecified reason; Z91.120 Patient's intentional underdosing of medication regimen due to financial hardship; Z79.899 Other long term (current) drug therapy; Z20.822 Contact with and (suspected) exposure to COVID-19
CPT/HCPCS: 36415; 36569; 71045; 80048; 80053; 80061; 80076; 80202; 81001; 82947; 83036; 83605; 83735; 83880; 84100; 84145; 84484; 85025; 85610; 85652; 85730; 86140; 87040; 87070; 87075; 87077; 87186; 87205; 87811; 88304; 93005; 93926; 93971; 94760; 96365; 96366; 96375; 99285; C9113; J0690; J0692; J1815; J2001; J2250; J2704; J3010; J3370; J3475; J7030; J7040; J7050